=== PATIENT | male | born 1935 | race Caucasian/White ===

== ENCOUNTER → 2016-09-01 | Outpatient (CLI) | payer MEDICARE ==
[~2016-09-01] MED LIST: ASPIRIN 32325 MG/TAB PO; HYDRODIURIL50 MG PO; LIPITOR 40MG TA40 MG PO; TENORMIN 5050 MG/TAB PO; ZESTRIL 20MG TA20 MG PO; ZYLOPRIM 300MG300 MG PO
== END ==
LOC: COL.RAD 13:26
DX: R60.0 Localized edema (principal); R79.1 Abnormal coagulation profile; I10 Essential (primary) hypertension; I25.10 Atherosclerotic heart disease of native coronary artery without angina pectoris

== ENCOUNTER → 2016-09-30 | Outpatient (REF) | LOC: ZLAB.WCH 15:39 | DX: Z01.89 Encounter for other specified special examinations (principal) ==

== ENCOUNTER → 2016-12-07 | Outpatient (REF) | LOC: ZLAB.WCH 18:01 | DX: Z01.89 Encounter for other specified special examinations (principal) ==

== ENCOUNTER → 2017-02-09 | Outpatient (REF) ==
[2017-02-09 11:06] LABS: THYROID STIMULATING HORMONE 1.5 uIU/mL (0.465-4.680)
== END ==
LOC: ZLAB.WCH 10:21
PROVIDERS: Internal Medicine
DX: Z01.89 Encounter for other specified special examinations (principal)

== ENCOUNTER → 2017-04-13 | Outpatient (REF) | LOC: ZLAB.WCH 18:21 | DX: Z01.89 Encounter for other specified special examinations (principal) ==

== ENCOUNTER → 2017-11-21 | Outpatient (REF) | LOC: ZLAB.WCH 14:19 | DX: Z01.89 Encounter for other specified special examinations (principal) ==

== ENCOUNTER 2018-01-22 17:46 | Inpatient (IN) | payer MEDICARE ==
[~2018-01-22] VITALS: Ht 180.3 cm; Wt 98.7 kg
[2018-01-22 20:39] VITALS: BP 128/55; PULSE 77; TEMP 98.1
[2018-01-22 21:06] LABS: BASO % 0.3 % (0.0-2.0); EOS # 0.1 (0.0-0.7); EOS % 2.4 % (0-4.0); GRAN # 4.2 (1.4-6.5); GRAN % 70.6 % (42.2-75.2); LYMPH # 1.1 (1.2-3.4); LYMPH % 18.8 % (20.0-51.0); MEAN CELL VOLUME 96 fl (80.0-100.0); MEAN CORPUSCULAR HGB CONC 34 g/dl (33.0-37.0); MEAN PLATELET VOLUME 11.1 fl (7.4-10.4); MONO # 0.5 (0.1-0.6); MONO % 7.6 % (1.7-9.3); PLATELET COUNT 111 K/mm3 (130-400); REDCELL DISTRIBUTION WIDTH-CV 14.3 % (11.5-14.5)
[2018-01-22 21:11] LABS: HEMATOCRIT 19.2 % (42.0-52.0); MEAN CORPUSCULAR HEMOGLOBIN 33 pg (27.0-31.0)
[2018-01-22 21:12] LABS: HEMOGLOBIN 6.5 g/dl (13.5-18.0)
[2018-01-22] MEDS ORDERED: VESICARE 5MG5 MG PO (21:43)
[2018-01-22] MEDS ORDERED: CRESTOR 10MG10 MG PO (21:44)
[2018-01-22 23:15] VITALS: BP 137/58; PULSE 75; TEMP 98.4
[2018-01-22 23:30] VITALS: BP 129/51; PULSE 72; TEMP 98.2
[2018-01-23] VITALS (9 sets, daily range): BP systolic 109–147; BP diastolic 44–105; PULSE 62–87; TEMP 97.6–98.7
[2018-01-23] MEDS ORDERED: BENICAR5 MG PO (00:49)
[2018-01-23] MEDS ORDERED: PLAVIX 75MG TAB75 MG PO (00:51)
[2018-01-23] MEDS ORDERED: TOPROL XL 50MG50 MG PO (00:52)
[2018-01-23 03:06] LABS: HEMATOCRIT 20.9 % (42.0-52.0); HEMOGLOBIN 6.9 g/dl (13.5-18.0)
[2018-01-23 05:57] LABS: COLLECTION METHOD CLEAN CATCH
[2018-01-23 06:03] LABS: MUCOUS Present /lpf; PH 5 (5-8); SQUAMOUS EPITHELIAL None Seen /hpf; URINE APPEARANCE Clear; URINE BACTERIA None Seen /hpf; URINE BILIRUBIN Negative (NEGATIVE); URINE BLOOD Negative (NEGATIVE); URINE COLOR Straw; URINE GLUCOSE Negative (NEGATIVE); URINE KETONE Negative (NEGATIVE); URINE LEUKOCYTE ESTERASE Negative (NEGATIVE); URINE NITRATE Negative (NEGATIVE); URINE PROTEIN(semi-quant) Negative (NEGATIVE); URINE RBC 0-2 /hpf; URINE UROBILINOGEN Negative (NEGATIVE)
[2018-01-23 08:44] LABS: BASO % 0.5 % (0.0-2.0); EOS # 0.1 (0.0-0.7); EOS % 2.4 % (0-4.0); GRAN # 4.7 (1.4-6.5); GRAN % 80.2 % (42.2-75.2); LYMPH # 0.6 (1.2-3.4); LYMPH % 10.4 % (20.0-51.0); MEAN CELL VOLUME 93 fl (80.0-100.0); MEAN CORPUSCULAR HGB CONC 34 g/dl (33.0-37.0); MONO # 0.4 (0.1-0.6); PLATELET COUNT 103 K/mm3 (130-400); RED BLOOD COUNT 2.52 M/mm3 (4.20-5.60); REDCELL DISTRIBUTION WIDTH-CV 15.7 % (11.5-14.5)
[2018-01-23 08:45] LABS: HEMATOCRIT 23.3 % (42.0-52.0); HEMOGLOBIN 7.9 g/dl (13.5-18.0); MEAN CORPUSCULAR HEMOGLOBIN 31 pg (27.0-31.0)
[2018-01-23 08:55] LABS: CALCIUM 8.2 mg/dL (8.4-10.2); CREATININE, serum 1.9 mg/dL (0.66-1.25); POTASSIUM 3.8 mmol/L (3.4-5.0)
[2018-01-23 10:44] LABS: HEMATOCRIT 23.7 % (42.0-52.0); HEMOGLOBIN 8.1 g/dl (13.5-18.0)
[2018-01-23 16:22] LABS: HEMATOCRIT 23.4 % (42.0-52.0)
[2018-01-23 19:11] LABS: HEMATOCRIT 23.5 % (42.0-52.0)
[2018-01-24 00:11] LABS: HEMATOCRIT 22.4 % (42.0-52.0); HEMOGLOBIN 7.6 g/dl (13.5-18.0)
[2018-01-24 00:57] VITALS: BP 131/67; PULSE 77; TEMP 98.6
[2018-01-24 03:53] VITALS: BP 144/64; PULSE 95; TEMP 97.7
[2018-01-24 09:22] VITALS: BP 159/69; PULSE 84; TEMP 98.4
[2018-01-24] MEDS ORDERED: ASPIRIN E.C. 8181 MG PO (09:59)
[2018-01-24 10:20] LABS: BASO % 0.8 % (0.0-2.0); EOS # 0.2 (0.0-0.7); EOS % 3.8 % (0-4.0); GRAN # 3.8 (1.4-6.5); GRAN % 75.9 % (42.2-75.2); LYMPH # 0.7 (1.2-3.4); LYMPH % 12.8 % (20.0-51.0); MEAN CELL VOLUME 92 fl (80.0-100.0); MEAN CORPUSCULAR HGB CONC 34 g/dl (33.0-37.0); MEAN PLATELET VOLUME 10.8 fl (7.4-10.4); MONO # 0.3 (0.1-0.6); MONO % 6.5 % (1.7-9.3); PLATELET COUNT 103 K/mm3 (130-400); RED BLOOD COUNT 2.28 M/mm3 (4.20-5.60); REDCELL DISTRIBUTION WIDTH-CV 16.3 % (11.5-14.5)
[2018-01-24 10:21] LABS: HEMATOCRIT 20.9 % (42.0-52.0); HEMOGLOBIN 7.1 g/dl (13.5-18.0); MEAN CORPUSCULAR HEMOGLOBIN 31 pg (27.0-31.0)
[2018-01-24 10:32] LABS: ALBUMIN 2.9 gm/dL (3.5-5.0); BILIRUBIN,TOTAL 1.3 mg/dL (0.0-1.0); CALCIUM 8.4 mg/dL (8.4-10.2); CREATININE, serum 1.72 mg/dL (0.66-1.25); MAGNESIUM 1.5 mg/dL (1.6-2.3); POTASSIUM 3.6 mmol/L (3.4-5.0); TOTAL PROTEIN 5.4 gm/dL (6.4-8.2)
[2018-01-25] MEDS ORDERED: BENICAR 20MG TA20 MG PO (20:52)
[2018-01-25] MEDS ORDERED: TYLENOL 325MG325 MG PO (20:53)
[2018-01-25] MEDS ORDERED: NITROSTAT0.4 MG/TAB SL (20:55)
[2018-01-25] MEDS ORDERED: CRESTOR40 MG PO (20:55)
[2018-01-25] MEDS ORDERED: ULTRAM 50MG TAB50 MG PO (20:56)
[2018-01-25] MEDS ORDERED: XALATAN EYE DROPS OD (21:00)
[2018-01-25] MEDS ORDERED: COMBIGAN 0.2%-0.5 ML OS (21:01)
[2018-01-25] MEDS ORDERED: LOTRISONE 0.05%1 CRE TOP (21:02)
[2018-01-25] MEDS ORDERED: TRIAMC 0.1 454 TOP (21:03)
[2018-01-25] MEDS ORDERED: FLOMAX 0.40.4 MG/CAP PO (21:03)
== END 2018-01-24 15:14 | disposition home or self-care (01) | DRG 377 ==
LOC: MEDICAL 17:46
PROVIDERS: Internal Medicine; Internal Medicine Gastroenterology; Nurse Practitioner Family
PROC: 0DB68ZX Excision of Stomach, Via Natural or Artificial Opening Endoscopic, Diagnostic (ICD-10-PCS; 2018-01-23)
PROC: 0W3P8ZZ Control Bleeding in Gastrointestinal Tract, Via Natural or Artificial Opening Endoscopic (ICD-10-PCS; principal; 2018-01-23 12:00)
DX: K25.4 Chronic or unspecified gastric ulcer with hemorrhage (principal); G93.40 Encephalopathy, unspecified; D62 Acute posthemorrhagic anemia; I13.0 Hypertensive heart and chronic kidney disease with heart failure and stage 1 through stage 4 chronic kidney disease, or unspecified chronic kidney disease; I50.32 Chronic diastolic (congestive) heart failure; N17.9 Acute kidney failure, unspecified; N18.3 Chronic kidney disease, stage 3 (moderate); E11.22 Type 2 diabetes mellitus with diabetic chronic kidney disease; I25.10 Atherosclerotic heart disease of native coronary artery without angina pectoris; Z95.5 Presence of coronary angioplasty implant and graft; E11.42 Type 2 diabetes mellitus with diabetic polyneuropathy; Z85.51 Personal history of malignant neoplasm of bladder; Z87.891 Personal history of nicotine dependence
CPT/HCPCS: 99223-AI; 99239; C9113; J2060; J2704; J7030; P9016

== ENCOUNTER 2018-01-25 19:13 | Observation (INO) | payer MEDICARE ==
[~2018-01-25] VITALS: Ht 177.8 cm; Wt 124.5 kg
[~2018-01-25 19:13] MED LIST changes: +ASPIRIN E.C. 8181 MG PO; +BENICAR5 MG PO; +CRESTOR 10MG10 MG PO; +PLAVIX 75MG TAB75 MG PO; +TOPROL XL 50MG50 MG PO; +VESICARE 5MG5 MG PO
[2018-01-25] MEDS ORDERED: BENICAR 20MG TA20 MG PO (20:52)
[2018-01-25] MEDS ORDERED: TYLENOL 325MG325 MG PO (20:53)
[2018-01-25] MEDS ORDERED: CRESTOR40 MG PO (20:55)
[2018-01-25] MEDS ORDERED: NITROSTAT0.4 MG/TAB SL (20:55)
[2018-01-25 20:56] VITALS: BP 120/54; PULSE 128; TEMP 98.6
[2018-01-25] MEDS ORDERED: ULTRAM 50MG TAB50 MG PO (20:56)
[2018-01-25] MEDS ORDERED: XALATAN EYE DROPS OD (21:00)
[2018-01-25] MEDS ORDERED: COMBIGAN 0.2%-0.5 ML OS (21:01)
[2018-01-25] MEDS ORDERED: LOTRISONE 0.05%1 CRE TOP (21:02)
[2018-01-25] MEDS ORDERED: TRIAMC 0.1 454 TOP (21:03)
[2018-01-25] MEDS ORDERED: FLOMAX 0.40.4 MG/CAP PO (21:03)
[2018-01-25 23:29] VITALS: BP 102/50; PULSE 91; TEMP 98.2
[2018-01-26] VITALS (15 sets, daily range): BP systolic 86–159; BP diastolic 40–99; PULSE 60–108; TEMP 97.5–98.7
[2018-01-26 00:03] LABS: HEMATOCRIT 19.3 % (42.0-52.0); HEMOGLOBIN 6.6 g/dl (13.5-18.0)
[2018-01-26 05:08] LABS: BASO % 0.6 % (0.0-2.0); EOS # 0.2 (0.0-0.7); EOS % 3.6 % (0-4.0); GRAN # 3.6 (1.4-6.5); GRAN % 70.5 % (42.2-75.2); LYMPH # 0.9 (1.2-3.4); LYMPH % 16.8 % (20.0-51.0); MEAN CELL VOLUME 93 fl (80.0-100.0); MEAN CORPUSCULAR HGB CONC 34 g/dl (33.0-37.0); MEAN PLATELET VOLUME 10.2 fl (7.4-10.4); MONO # 0.4 (0.1-0.6); MONO % 8.1 % (1.7-9.3); PLATELET COUNT 106 K/mm3 (130-400); REDCELL DISTRIBUTION WIDTH-CV 15.5 % (11.5-14.5)
[2018-01-26 05:09] LABS: HEMATOCRIT 23.2 % (42.0-52.0); HEMOGLOBIN 7.8 g/dl (13.5-18.0); MEAN CORPUSCULAR HEMOGLOBIN 31 pg (27.0-31.0)
[2018-01-26 05:34] LABS: CALCIUM 8.3 mg/dL (8.4-10.2); CREATININE, serum 2.06 mg/dL (0.66-1.25); POTASSIUM 3.3 mmol/L (3.4-5.0)
[2018-01-26 06:12] LABS: TROPONIN-I 0.49 ng/mL (0.000-0.034)
[2018-01-26 19:39] LABS: HEMATOCRIT 25.7 % (42.0-52.0); HEMOGLOBIN 8.7 g/dl (13.5-18.0)
[2018-01-27] VITALS (7 sets, daily range): BP systolic 88–152; BP diastolic 33–96; PULSE 81–104; TEMP 97.4–98.5
[2018-01-27 09:07] LABS: BASO # 0.1 (0.0-0.2); BASO % 0.7 % (0.0-2.0); EOS # 0.1 (0.0-0.7); GRAN # 5.7 (1.4-6.5); GRAN % 81.4 % (42.2-75.2); LYMPH # 0.6 (1.2-3.4); MEAN CELL VOLUME 92 fl (80.0-100.0); MEAN CORPUSCULAR HGB CONC 34 g/dl (33.0-37.0); MEAN PLATELET VOLUME 11.3 fl (7.4-10.4); MONO # 0.5 (0.1-0.6); MONO % 7.6 % (1.7-9.3); PLATELET COUNT 124 K/mm3 (130-400); RED BLOOD COUNT 2.93 M/mm3 (4.20-5.60); REDCELL DISTRIBUTION WIDTH-CV 16.1 % (11.5-14.5)
[2018-01-27 09:15] LABS: HEMATOCRIT 26.9 % (42.0-52.0); HEMOGLOBIN 9.2 g/dl (13.5-18.0); MEAN CORPUSCULAR HEMOGLOBIN 31 pg (27.0-31.0)
[2018-01-27 09:16] LABS: CALCIUM 8.6 mg/dL (8.4-10.2); CREATININE, serum 1.73 mg/dL (0.66-1.25); POTASSIUM 4.1 mmol/L (3.4-5.0)
[2018-01-27 09:30] LABS: TROPONIN-I 0.976 ng/mL (0.000-0.034)
[2018-01-28 03:59] VITALS: BP 148/68; PULSE 98; TEMP 98.2
[2018-01-28 06:55] LABS: BASO # 0.1 (0.0-0.2); EOS # 0.3 (0.0-0.7); EOS % 3.3 % (0-4.0); GRAN # 6.2 (1.4-6.5); GRAN % 78.2 % (42.2-75.2); LYMPH # 0.6 (1.2-3.4); MEAN CELL VOLUME 91 fl (80.0-100.0); MEAN CORPUSCULAR HGB CONC 34 g/dl (33.0-37.0); MONO # 0.7 (0.1-0.6); MONO % 9.2 % (1.7-9.3); PLATELET COUNT 130 K/mm3 (130-400); RED BLOOD COUNT 3.07 M/mm3 (4.20-5.60); REDCELL DISTRIBUTION WIDTH-CV 16.4 % (11.5-14.5)
[2018-01-28 06:56] LABS: HEMOGLOBIN 9.6 g/dl (13.5-18.0); MEAN CORPUSCULAR HEMOGLOBIN 31 pg (27.0-31.0)
[2018-01-28 07:30] LABS: CALCIUM 8.7 mg/dL (8.4-10.2); CREATININE, serum 1.76 mg/dL (0.66-1.25); POTASSIUM 3.6 mmol/L (3.4-5.0)
[2018-01-28 08:10] VITALS: BP 138/82; PULSE 112; TEMP 98.2
[2018-01-28] MEDS ORDERED: SEROQUEL 2525 MG/TAB PO (09:03)
[2018-01-28] MEDS ORDERED: PROTONIX 40MG T40 MG PO (09:06)
== END 2018-01-28 10:35 | disposition home or self-care (01) ==
LOC: MEDICAL 19:13
PROVIDERS: Hospitalist; Nurse Practitioner; Physician Assistant
DX: D62 Acute posthemorrhagic anemia (principal); I25.10 Atherosclerotic heart disease of native coronary artery without angina pectoris; R55 Syncope and collapse; D69.6 Thrombocytopenia, unspecified; I70.0 Atherosclerosis of aorta; I13.0 Hypertensive heart and chronic kidney disease with heart failure and stage 1 through stage 4 chronic kidney disease, or unspecified chronic kidney disease; E11.22 Type 2 diabetes mellitus with diabetic chronic kidney disease; N18.3 Chronic kidney disease, stage 3 (moderate); I50.32 Chronic diastolic (congestive) heart failure; N17.9 Acute kidney failure, unspecified; E11.40 Type 2 diabetes mellitus with diabetic neuropathy, unspecified; E11.39 Type 2 diabetes mellitus with other diabetic ophthalmic complication; H42 Glaucoma in diseases classified elsewhere; E78.5 Hyperlipidemia, unspecified; I72.0 Aneurysm of carotid artery; G47.33 Obstructive sleep apnea (adult) (pediatric); I25.2 Old myocardial infarction; F03.90 Unspecified dementia, unspecified severity, without behavioral disturbance, psychotic disturbance, mood disturbance, and anxiety; F05 Delirium due to known physiological condition; Z79.82 Long term (current) use of aspirin; Z95.5 Presence of coronary angioplasty implant and graft; Z85.51 Personal history of malignant neoplasm of bladder; Z87.891 Personal history of nicotine dependence; Z82.49 Family history of ischemic heart disease and other diseases of the circulatory system; Z88.0 Allergy status to penicillin; Z88.1 Allergy status to other antibiotic agents
CPT/HCPCS: 99222-AI; G0378; J1630; J2060; J7030; P9016

== ENCOUNTER → 2018-02-08 | Outpatient (REF) ==
[~2018-02-08] MED LIST changes: +BENICAR 20MG TA20 MG PO; +COMBIGAN 0.2%-0.5 ML OS; +CRESTOR40 MG PO; +FLOMAX 0.40.4 MG/CAP PO; +LOTRISONE 0.05%1 CRE TOP; +NITROSTAT0.4 MG/TAB SL; +PROTONIX 40MG T40 MG PO; +SEROQUEL 2525 MG/TAB PO; +TRIAMC 0.1 454 TOP; +TYLENOL 325MG325 MG PO; +ULTRAM 50MG TAB50 MG PO; +XALATAN EYE DROPS OD
[2018-02-08 18:59] LABS: THYROID STIMULATING HORMONE 2.43 uIU/mL (0.465-4.680)
== END ==
LOC: ZLAB.WCH 18:10
PROVIDERS: Internal Medicine
DX: Z01.89 Encounter for other specified special examinations (principal)

== ENCOUNTER 2018-03-12 09:44 | Day surgery (SDC) | payer MEDICARE, OTHER ==
[~2018-03-12] VITALS: Ht 177.8 cm; Wt 85.0 kg
[~2018-03-12 09:44] MED LIST changes: -XALATAN EYE DROPS OD; +XALATAN EYE DROPS OS
[2018-03-12] MEDS ORDERED: NORCO 325 MG-51 TAB PO (10:44)
[2018-03-12] MEDS ORDERED: HYDRODIURIL50 MG PO (10:54)
[2018-03-12] MEDS ORDERED: SULFACETAMIDE S15 M1 OD (10:55)
[2018-03-12 11:28] VITALS: BP 126/67; PULSE 76; TEMP 98.1
[2018-03-12 13:15] VITALS: BP 127/64; PULSE 68; TEMP 97.2
[2018-03-12 13:30] VITALS: BP 123/64; PULSE 67
[2018-03-12 13:45] VITALS: BP 134/59; PULSE 68
[2018-03-12 14:00] VITALS: BP 141/64; PULSE 73
== END 2018-03-12 14:40 | disposition home or self-care (01) ==
LOC: SDCO 09:44
DX: C09.1 Malignant neoplasm of tonsillar pillar (anterior) (posterior) (principal); C03.1 Malignant neoplasm of lower gum; C01 Malignant neoplasm of base of tongue; E11.9 Type 2 diabetes mellitus without complications; D64.9 Anemia, unspecified; I25.10 Atherosclerotic heart disease of native coronary artery without angina pectoris; I12.9 Hypertensive chronic kidney disease with stage 1 through stage 4 chronic kidney disease, or unspecified chronic kidney disease; E11.22 Type 2 diabetes mellitus with diabetic chronic kidney disease; N18.3 Chronic kidney disease, stage 3 (moderate); E11.39 Type 2 diabetes mellitus with other diabetic ophthalmic complication; H42 Glaucoma in diseases classified elsewhere; E78.5 Hyperlipidemia, unspecified; L82.1 Other seborrheic keratosis; K13.21 Leukoplakia of oral mucosa, including tongue; I25.2 Old myocardial infarction; M10.9 Gout, unspecified; G47.33 Obstructive sleep apnea (adult) (pediatric); M19.90 Unspecified osteoarthritis, unspecified site; Z79.82 Long term (current) use of aspirin; Z85.51 Personal history of malignant neoplasm of bladder; Z85.46 Personal history of malignant neoplasm of prostate; Z87.891 Personal history of nicotine dependence; Z88.0 Allergy status to penicillin; Z88.1 Allergy status to other antibiotic agents; Z83.3 Family history of diabetes mellitus
CPT/HCPCS: J0330; J1100; J2405; J2704; J3010; J7030

== ENCOUNTER 2018-03-30 05:26 | Day surgery (SDC) | payer MEDICARE, OTHER ==
[~2018-03-30] VITALS: Ht 175.3 cm; Wt 78.5 kg
[~2018-03-30 05:26] MED LIST changes: +NORCO 325 MG-51 TAB PO; +SULFACETAMIDE S15 M1 OD
[2018-03-30 06:09] VITALS: BP 106/55; PULSE 89; TEMP 98.3
[2018-03-30 06:23] LABS: ALBUMIN 3.7 gm/dL (3.5-5.0); CALCIUM 9.5 mg/dL (8.4-10.2); CREATININE, serum 2.05 mg/dL (0.66-1.25); POTASSIUM 3.7 mmol/L (3.4-5.0)
[2018-03-30] MEDS ORDERED: ZYLOPRIM 300MG300 MG PO (06:43)
[2018-03-30] MEDS ORDERED: TYLENOL 325MG325 MG PO (06:43)
[2018-03-30] MEDS ORDERED: VESICARE 5MG5 MG PO (06:44)
[2018-03-30 08:59] VITALS: BP 108/56; PULSE 75
[2018-03-30] MEDS ORDERED: NORCO 325 MG-51 TAB PO (09:10)
[2018-03-30] MEDS ORDERED: COLACE 100100 MG/CAP PO (09:11)
[2018-03-30 09:14] VITALS: BP 111/56; PULSE 74
[2018-03-30 09:29] VITALS: BP 110/63; PULSE 78
[2018-03-30 09:44] VITALS: BP 115/60; PULSE 71
[2018-03-30 09:59] VITALS: BP 122/62; PULSE 72
== END 2018-03-30 11:00 | disposition home or self-care (01) ==
LOC: SDCO 05:26
PROVIDERS: Surgery
DX: C10.9 Malignant neoplasm of oropharynx, unspecified (principal); N18.9 Chronic kidney disease, unspecified; E11.22 Type 2 diabetes mellitus with diabetic chronic kidney disease; I25.10 Atherosclerotic heart disease of native coronary artery without angina pectoris; Z95.5 Presence of coronary angioplasty implant and graft; D63.1 Anemia in chronic kidney disease; G47.33 Obstructive sleep apnea (adult) (pediatric); I50.9 Heart failure, unspecified; E78.00 Pure hypercholesterolemia, unspecified; I13.0 Hypertensive heart and chronic kidney disease with heart failure and stage 1 through stage 4 chronic kidney disease, or unspecified chronic kidney disease; I25.2 Old myocardial infarction; F32.9 Major depressive disorder, single episode, unspecified; M62.81 Muscle weakness (generalized); F03.90 Unspecified dementia, unspecified severity, without behavioral disturbance, psychotic disturbance, mood disturbance, and anxiety; M10.9 Gout, unspecified; E78.5 Hyperlipidemia, unspecified; Z87.891 Personal history of nicotine dependence; Z79.82 Long term (current) use of aspirin; Z79.1 Long term (current) use of non-steroidal anti-inflammatories (NSAID); Z85.51 Personal history of malignant neoplasm of bladder; Z95.1 Presence of aortocoronary bypass graft; Z90.49 Acquired absence of other specified parts of digestive tract; Z88.0 Allergy status to penicillin; Z88.8 Allergy status to other drugs, medicaments and biological substances
CPT/HCPCS: C1788; J0690; J1644; J2405; J2704; J3010; J7120

== ENCOUNTER 2018-04-19 20:09 | Inpatient (IN) | payer MEDICARE, OTHER ==
[~2018-04-19] VITALS: Ht 172.7 cm; Wt 79.5 kg
[2018-04-19] VITALS (96 sets, daily range): O2SAT 31–100
[~2018-04-19 20:09] MED LIST changes: +COLACE 100100 MG/CAP PO
[2018-04-19] MEDS ORDERED: NORCO 325 MG-7.1 TAB PO (23:03)
[2018-04-19 23:22] LABS: MEAN CELL VOLUME 93 fl (80.0-100.0); MEAN CORPUSCULAR HGB CONC 35 g/dl (33.0-37.0); MEAN PLATELET VOLUME 10.8 fl (7.4-10.4); PLATELET COUNT 166 K/mm3 (130-400); RED BLOOD COUNT 2.13 M/mm3 (4.20-5.60); REDCELL DISTRIBUTION WIDTH-CV 15.8 % (11.5-14.5)
[2018-04-19 23:26] LABS: HEMATOCRIT 19.8 % (42.0-52.0); HEMOGLOBIN 6.9 g/dl (13.5-18.0); MEAN CORPUSCULAR HEMOGLOBIN 32 pg (27.0-31.0)
[2018-04-19 23:29] LABS: PROTHROMBIN TIME 11.9 SECONDS (9.7-12.8)
[2018-04-19 23:35] LABS: ALBUMIN 2.8 gm/dL (3.5-5.0); BILIRUBIN,TOTAL 0.3 mg/dL (0.0-1.0); CALCIUM 8.5 mg/dL (8.4-10.2); CREATININE, serum 2.14 mg/dL (0.66-1.25); POTASSIUM 4.4 mmol/L (3.4-5.0); TOTAL PROTEIN 5.4 gm/dL (6.4-8.2)
[2018-04-19 23:42] LABS: ANISOCYTOSIS 1+; BAND 2 % (0-10); LYMPHOCYTE 1 % (20.0-51.0); NEUTROPHILS 95 % (42.0-75.2); PLATELET ESTIMATE NORMAL (NORMAL)
[2018-04-19 23:43] LABS: OVALOCYTES 1+; SCHISTOCYTES 1+
[2018-04-19 23:44] LABS: HELMET CELLS 1+
[2018-04-19 23:59] LABS: PHOSPHOROUS 3.4 mg/dL (2.5-4.5)
[2018-04-20] VITALS (1196 sets, daily range): BP systolic 81–115; BP diastolic 49–61; PULSE 71–92; TEMP 97.5–98.2; O2SAT 39–100
[2018-04-20 05:59] LABS: MEAN CELL VOLUME 95 fl (80.0-100.0); MEAN CORPUSCULAR HGB CONC 34 g/dl (33.0-37.0); MEAN PLATELET VOLUME 11.4 fl (7.4-10.4); PLATELET COUNT 170 K/mm3 (130-400); RED BLOOD COUNT 2.54 M/mm3 (4.20-5.60); REDCELL DISTRIBUTION WIDTH-CV 15.6 % (11.5-14.5)
[2018-04-20 06:13] LABS: HEMATOCRIT 24.1 % (42.0-52.0); HEMOGLOBIN 8.2 g/dl (13.5-18.0); MEAN CORPUSCULAR HEMOGLOBIN 32 pg (27.0-31.0)
[2018-04-20 06:18] LABS: CALCIUM 8.5 mg/dL (8.4-10.2); CREATININE, serum 1.89 mg/dL (0.66-1.25); POTASSIUM 4.6 mmol/L (3.4-5.0)
[2018-04-20 07:12] LABS: BAND 17 % (0-10); LYMPHOCYTE 3 % (20.0-51.0); NEUTROPHILS 79 % (42.0-75.2)
[2018-04-20 13:26] LABS: HEMATOCRIT 23.2 % (42.0-52.0); HEMOGLOBIN 7.9 g/dl (13.5-18.0)
[2018-04-20 16:08] LABS: PH 5 (5-8); SQUAMOUS EPITHELIAL 0-2 /hpf; URINE APPEARANCE Clear; URINE BACTERIA Rare /hpf; URINE BILIRUBIN Negative (NEGATIVE); URINE BLOOD 1+ (NEGATIVE); URINE COLOR Straw; URINE GLUCOSE Negative (NEGATIVE); URINE KETONE Negative (NEGATIVE); URINE LEUKOCYTE ESTERASE Negative (NEGATIVE); URINE NITRATE Negative (NEGATIVE); URINE PROTEIN(semi-quant) Negative (NEGATIVE); URINE UROBILINOGEN Negative (NEGATIVE)
[2018-04-20 16:13] LABS: COLLECTION METHOD CATHETER
[2018-04-20 23:42] LABS: HEMATOCRIT 22.8 % (42.0-52.0); HEMOGLOBIN 7.8 g/dl (13.5-18.0)
[2018-04-21] VITALS (884 sets, daily range): BP systolic 109–126; BP diastolic 56–78; PULSE 76–100; TEMP 97.7–98; O2SAT 31–100
[2018-04-21 07:03] LABS: BASO % 0.2 % (0.0-2.0); EOS % 0.3 % (0-4.0); GRAN % 89.7 % (42.2-75.2); LYMPH # 0.3 (1.2-3.4); LYMPH % 3.1 % (20.0-51.0); MEAN CELL VOLUME 96 fl (80.0-100.0); MEAN CORPUSCULAR HGB CONC 34 g/dl (33.0-37.0); MEAN PLATELET VOLUME 10.8 fl (7.4-10.4); MONO # 0.5 (0.1-0.6); MONO % 5.9 % (1.7-9.3); PLATELET COUNT 162 K/mm3 (130-400); RED BLOOD COUNT 2.42 M/mm3 (4.20-5.60); REDCELL DISTRIBUTION WIDTH-CV 16.2 % (11.5-14.5)
[2018-04-21 07:08] LABS: HEMATOCRIT 23.1 % (42.0-52.0); HEMOGLOBIN 7.8 g/dl (13.5-18.0); MEAN CORPUSCULAR HEMOGLOBIN 32 pg (27.0-31.0)
[2018-04-21 07:21] LABS: CALCIUM 8.5 mg/dL (8.4-10.2); CREATININE, serum 1.48 mg/dL (0.66-1.25); MAGNESIUM 1.9 mg/dL (1.6-2.3); PHOSPHOROUS 2.9 mg/dL (2.5-4.5); POTASSIUM 4.2 mmol/L (3.4-5.0)
[2018-04-21 07:27] LABS: PRE ALBUMIN 20.1 mg/dL (17.6-36.0)
[2018-04-22] VITALS (7 sets, daily range): BP systolic 104–133; BP diastolic 46–66; PULSE 61–105; TEMP 97.4–98.3
[2018-04-23 03:43] VITALS: BP 133/63; PULSE 108; TEMP 98.9
[2018-04-23 06:54] LABS: ALBUMIN 2.4 gm/dL (3.5-5.0); BILIRUBIN,TOTAL 0.3 mg/dL (0.0-1.0); CALCIUM 8.2 mg/dL (8.4-10.2); CREATININE, serum 1.14 mg/dL (0.66-1.25); MAGNESIUM 1.8 mg/dL (1.6-2.3); PHOSPHOROUS 1.9 mg/dL (2.5-4.5); TOTAL PROTEIN 4.8 gm/dL (6.4-8.2)
[2018-04-23 07:01] LABS: PRE ALBUMIN 17.1 mg/dL (17.6-36.0)
[2018-04-23 09:07] VITALS: BP 132/73; PULSE 116; TEMP 97.5
[2018-04-23 11:44] VITALS: BP 135/57; PULSE 89; TEMP 98
[2018-04-23 16:36] VITALS: BP 131/69; PULSE 80; TEMP 97.6
[2018-04-24 00:12] VITALS: BP 102/54; PULSE 68; TEMP 98.2
[2018-04-24 05:56] LABS: BASO % 0.1 % (0.0-2.0); EOS # 0.4 (0.0-0.7); EOS % 4.3 % (0-4.0); GRAN # 7.1 (1.4-6.5); GRAN % 83.6 % (42.2-75.2); LYMPH # 0.4 (1.2-3.4); LYMPH % 5.1 % (20.0-51.0); MEAN CELL VOLUME 99 fl (80.0-100.0); MEAN CORPUSCULAR HGB CONC 33 g/dl (33.0-37.0); MEAN PLATELET VOLUME 11.3 fl (7.4-10.4); MONO # 0.5 (0.1-0.6); PLATELET COUNT 166 K/mm3 (130-400); RED BLOOD COUNT 2.16 M/mm3 (4.20-5.60); REDCELL DISTRIBUTION WIDTH-CV 17.1 % (11.5-14.5)
[2018-04-24 05:58] LABS: HEMATOCRIT 21.4 % (42.0-52.0); MEAN CORPUSCULAR HEMOGLOBIN 32 pg (27.0-31.0)
[2018-04-24 06:11] LABS: CALCIUM 8.1 mg/dL (8.4-10.2); CREATININE, serum 1.14 mg/dL (0.66-1.25); PHOSPHOROUS 3.4 mg/dL (2.5-4.5); POTASSIUM 4.3 mmol/L (3.4-5.0)
[2018-04-24 07:20] VITALS: BP 134/62; PULSE 106; TEMP 97.9
[2018-04-24 11:03] VITALS: BP 115/49; PULSE 91; TEMP 98.7
[2018-04-24 15:06] VITALS: BP 103/48; PULSE 99; TEMP 98.3
[2018-04-24 17:17] LABS: HEMOGLOBIN 7.4 g/dl (13.5-18.0)
[2018-04-24 20:00] VITALS: BP 121/62; PULSE 92; TEMP 98.4
[2018-04-25] VITALS (10 sets, daily range): BP systolic 95–135; BP diastolic 43–97; PULSE 74–109; TEMP 97.3–98.5
[2018-04-25 06:41] LABS: MEAN CELL VOLUME 101 fl (80.0-100.0); MEAN CORPUSCULAR HGB CONC 32 g/dl (33.0-37.0); MEAN PLATELET VOLUME 11.8 fl (7.4-10.4); PLATELET COUNT 163 K/mm3 (130-400); REDCELL DISTRIBUTION WIDTH-CV 17.2 % (11.5-14.5)
[2018-04-25 06:42] LABS: CREATININE, serum 1.13 mg/dL (0.66-1.25); HEMATOCRIT 21.1 % (42.0-52.0); MEAN CORPUSCULAR HEMOGLOBIN 32 pg (27.0-31.0); POTASSIUM 4.3 mmol/L (3.4-5.0)
[2018-04-25 06:43] LABS: HEMOGLOBIN 6.8 g/dl (13.5-18.0)
[2018-04-25 07:19] LABS: ANISOCYTOSIS 1+; BAND 1 % (0-10); EOSINOPHIL 7 % (0-4); LYMPHOCYTE 4 % (20.0-51.0); NEUTROPHILS 86 % (42.0-75.2); PLATELET ESTIMATE NORMAL (NORMAL)
[2018-04-25 09:38] LABS: ARTERIAL BLD GAS O2 SATURATION 95.3 % (92-100); ARTERIAL BLD GAS TCO2 CT 32.1; ARTERIAL BLOOD GAS BASE EXCESS 6.7 (-2-2); ARTERIAL BLOOD GAS HCO3 30.8 meq/L (22-26); ARTERIAL BLOOD GAS PCO2 42.2 mmHg (35-45); ARTERIAL BLOOD GAS PO2 80.6 mmHg (80-100); ARTERIAL BLOOD GAS pH 7.48 (7.35-7.45)
[2018-04-25 20:15] LABS: HEMATOCRIT 26.5 % (42.0-52.0); HEMOGLOBIN 8.7 g/dl (13.5-18.0)
[2018-04-26 04:00] VITALS: BP 126/63; PULSE 104; TEMP 97.3
[2018-04-26 07:29] VITALS: BP 119/67; PULSE 92; TEMP 97.4
[2018-04-26 07:31] LABS: BASO % 0.2 % (0.0-2.0); EOS # 0.2 (0.0-0.7); EOS % 1.9 % (0-4.0); GRAN # 9.8 (1.4-6.5); GRAN % 89.5 % (42.2-75.2); LYMPH # 0.3 (1.2-3.4); LYMPH % 3.1 % (20.0-51.0); MEAN CELL VOLUME 97 fl (80.0-100.0); MEAN CORPUSCULAR HGB CONC 33 g/dl (33.0-37.0); MEAN PLATELET VOLUME 10.9 fl (7.4-10.4); MONO # 0.5 (0.1-0.6); MONO % 4.9 % (1.7-9.3); PLATELET COUNT 153 K/mm3 (130-400); RED BLOOD COUNT 2.52 M/mm3 (4.20-5.60); REDCELL DISTRIBUTION WIDTH-CV 19.2 % (11.5-14.5)
[2018-04-26 07:35] LABS: HEMATOCRIT 24.4 % (42.0-52.0); MEAN CORPUSCULAR HEMOGLOBIN 32 pg (27.0-31.0)
[2018-04-26 07:41] LABS: CALCIUM 7.9 mg/dL (8.4-10.2); CREATININE, serum 1.09 mg/dL (0.66-1.25); POTASSIUM 4.3 mmol/L (3.4-5.0)
[2018-04-26 11:12] VITALS: BP 126/62; PULSE 78; TEMP 97.4
[2018-04-26 16:08] VITALS: BP 130/65; PULSE 101; TEMP 97.9
[2018-04-26 19:38] VITALS: BP 140/85; PULSE 106; TEMP 98
[2018-04-27 00:39] VITALS: BP 130/52; PULSE 82; TEMP 97.9
[2018-04-27 04:05] VITALS: BP 114/69; PULSE 93; TEMP 98.3
[2018-04-27 06:17] LABS: BASO % 0.2 % (0.0-2.0); EOS # 0.2 (0.0-0.7); EOS % 1.9 % (0-4.0); GRAN # 8.8 (1.4-6.5); GRAN % 88.4 % (42.2-75.2); LYMPH # 0.4 (1.2-3.4); LYMPH % 3.8 % (20.0-51.0); MEAN CELL VOLUME 97 fl (80.0-100.0); MEAN CORPUSCULAR HGB CONC 33 g/dl (33.0-37.0); MEAN PLATELET VOLUME 11.8 fl (7.4-10.4); MONO # 0.5 (0.1-0.6); MONO % 5.1 % (1.7-9.3); PLATELET COUNT 154 K/mm3 (130-400); RED BLOOD COUNT 2.57 M/mm3 (4.20-5.60); REDCELL DISTRIBUTION WIDTH-CV 18.4 % (11.5-14.5)
[2018-04-27 06:21] LABS: HEMATOCRIT 24.9 % (42.0-52.0); HEMOGLOBIN 8.2 g/dl (13.5-18.0); MEAN CORPUSCULAR HEMOGLOBIN 32 pg (27.0-31.0)
[2018-04-27 06:33] LABS: CREATININE, serum 1.03 mg/dL (0.66-1.25); POTASSIUM 4.3 mmol/L (3.4-5.0)
[2018-04-27 07:23] VITALS: BP 112/58; PULSE 95; TEMP 97.6
[2018-04-27] MEDS ORDERED: SEROQUEL 1100 MG/TAB PO (09:05)
[2018-04-27] MEDS ORDERED: FERROUS SU220 MG/5 M PEG (09:05)
[2018-04-27] MEDS ORDERED: SEROQUEL 2525 MG/TAB PO (09:06)
[2018-04-27] MEDS ORDERED: HALDOL 1MG T1 MG/TAB PO (09:07)
[2018-04-27] MEDS ORDERED: NORCO 325 MG-51 TAB PO (09:09)
[2018-04-27] MEDS ORDERED: LOPRESSOR 225 MG/TAB PO (10:07)
[2018-04-27 10:59] VITALS: BP 112/58; PULSE 95; TEMP 97.6
== END 2018-04-27 12:40 | DRG 378 ==
LOC: ICU 20:09 → SURG 04-21 18:17
PROVIDERS: Family Medicine; Internal Medicine; Internal Medicine Gastroenterology; Nurse Practitioner; Physician Assistant
PROC: 0DJ08ZZ Inspection of Upper Intestinal Tract, Via Natural or Artificial Opening Endoscopic (ICD-10-PCS; principal; 2018-04-20 12:00)
DX: K26.4 Chronic or unspecified duodenal ulcer with hemorrhage (principal); I13.0 Hypertensive heart and chronic kidney disease with heart failure and stage 1 through stage 4 chronic kidney disease, or unspecified chronic kidney disease; I50.32 Chronic diastolic (congestive) heart failure; E87.0 Hyperosmolality and hypernatremia; E44.0 Moderate protein-calorie malnutrition; Z66 Do not resuscitate; N17.9 Acute kidney failure, unspecified; E87.3 Alkalosis; N18.3 Chronic kidney disease, stage 3 (moderate); Z68.26 Body mass index [BMI] 26.0-26.9, adult; I25.10 Atherosclerotic heart disease of native coronary artery without angina pectoris; Z95.5 Presence of coronary angioplasty implant and graft; E11.22 Type 2 diabetes mellitus with diabetic chronic kidney disease; E78.5 Hyperlipidemia, unspecified; Z85.51 Personal history of malignant neoplasm of bladder; E11.42 Type 2 diabetes mellitus with diabetic polyneuropathy; Z87.891 Personal history of nicotine dependence; R45.1 Restlessness and agitation; R41.0 Disorientation, unspecified; I95.9 Hypotension, unspecified; G47.33 Obstructive sleep apnea (adult) (pediatric); C09.8 Malignant neoplasm of overlapping sites of tonsil; I72.0 Aneurysm of carotid artery
CPT/HCPCS: 99223-AI; 99233-AI; 99239; A4216; C9113; J0696; J1630; J1644; J1815; J2704; J7030; J7050; P9016

== ENCOUNTER → 2018-05-07 | Outpatient (REF) ==
[~2018-05-07] MED LIST changes: +FERROUS SU220 MG/5 M PEG; +HALDOL 1MG T1 MG/TAB PO; +LOPRESSOR 225 MG/TAB PO; +NORCO 325 MG-7.1 TAB PO; +SEROQUEL 1100 MG/TAB PO
== END ==
LOC: ZLAB.WCH 14:29
DX: Z01.89 Encounter for other specified special examinations (principal)

== ENCOUNTER → 2018-05-14 | Outpatient (REF) | LOC: ZLAB.WCH 18:31 | DX: Z01.89 Encounter for other specified special examinations (principal) ==

== ENCOUNTER → 2018-05-23 | Outpatient (REF) | LOC: ZLAB.WCH 18:03 | DX: Z01.89 Encounter for other specified special examinations (principal) ==